=== PATIENT | male | born 1965 | race Caucasian/White ===

== ENCOUNTER 2020-11-12 09:52 | Emergency (ER) | payer SELFPAY ==
[2020-11-12 10:00] VITALS: BP 125/76; PULSE 85; RESP 18; TEMP 36.9; O2SAT 99
[2020-11-12] MEDS: cefTRIAXone 500 MG VIAL IM (11:02)
[2020-11-12] MEDS: LIDOCAINE HCL 1% LOCAL INJ 20 ML VIAL IM (11:03)
--- NOTE | 2020-11-13 08:00 | ED.MALEGU ---
HPI - Male Genitourinary General Chief complaint: Urogenital-Male Stated complaint: Personal exposure Time Seen by Provider: 11/12/20 10:45 Source: patient and RN notes reviewed Mode of arrival: ambulatory Limitations: no limitations History of Present Illness HPI Narrative: Patient presents today complaining of a 2-3 day history of irritation at the tip of his penis with a 1 day history of yellow penile drainage. He recently did have unprotected intercourse. His girlfriend told him that she has been tested and has come positive for a sexually transmitted infection and has been treated. He is unsure which STI she was positive for. Denies hematuria, dysuria, testicular pain or swelling. Denies any lesions. MD Complaint: penile discharge and possible STD exposure Related Data Home Medications Medication Instructions Recorded Confirmed lisinopril-hydrochlorothiazide 1 tablet PO DAILY 11/12/20 11/12/20 Allergies Allergy/AdvReac Type Severity Reaction Status Date / Time No Known Allergies Allergy Verified 11/12/20 10:12 Review of Systems Review of Systems: CONSTITUTIONAL: Denies body aches, fever, chills, or sweats. EYES: Denies visual changes, redness, or discharge. ENT: Denies rhinorrhea, congestion, sore throat, or otalgia. CARDIOVASCULAR: Denies chest pain, palpitations, or edema. RESPIRATORY: Denies cough or dyspnea. GASTROINTESTINAL: Denies abdominal pain, nausea, vomiting, or diarrhea. GENITOURINARY: Denies dysuria or hematuria.+ Penile discharge and irritation SKIN: Denies rash, itching, or wounds. MUSCULOSKELETAL: Denies back pain, joint pain, or myalgia. NEUROLOGIC: Denies headache, numbness, tingling, or weakness. PSYCH: Denies depression or anxiety. [facility] Past Medical History Medical History (Updated 11/13/20 @ 08:04 by Eleni Elizondo, [facility], ) Hypertension Comments At time of signature, I have reviewed and agree with nursing past medical, surgical, social and family history unless otherwise noted. Please see nursing chart for further information. There is no relevant family history pertinent to the presenting complaint Exam Narrative: GENERAL: Well-appearing, well-nourished, and in no acute distress. HEAD: Normocephalic, atraumatic. EYES: EOMI. No redness or drainage. Conjunctivae normal. ENT: Mucous membranes pink and moist. NECK: Normal AROM. CHEST: No respiratory distress. : Deferred. EXTREMITIES: Normal range of motion. No edema. SKIN: Warm, dry, no rash. Capillary refill normal. Normal skin turgor. NEURO: No focal deficits. Alert and oriented x3. Gait steady. PSYCH: Normal affect. No signs of depression or anxiety. Course Vital Signs Vital signs: Vital Signs Temperature 98.4 F 11/12/20 10:00 Pulse Rate 85 11/12/20 10:00 Respiratory Rate 18 11/12/20 10:00 Blood Pressure 125/76 11/12/20 10:00 Pulse Oximetry 99 11/12/20 10:00 Temperature 98.4 F 11/12/20 10:00 Pulse Rate 85 11/12/20 10:00 Respiratory Rate 18 11/12/20 10:00 Blood Pressure 125/76 11/12/20 10:00 Pulse Oximetry 99 11/12/20 10:00 Reviewed. Pt has been instructed to follow up with his PCP regarding his elevated blood pressure today. MDM - Male Genitourinary Differential Diagnosis Differential diagnosis: Likely urethritis, epididymitis and other (Gonorrhea, chlamydia, trichomonas) Lab Data Labs: Lab Results 11/12/20 Range/Units 10:09 C.trachomatis RNA (TMA) Pending N.gonorrhoeae RNA (TMA) Pending T. vaginalis Amp RNA Pending Critical Care Time Critical Care Time Critical Care Time: No Discharge Plan Discharge Clinical Impression: Contact with and (suspected) exposure to infections with a predominantly sexual mode of transmission Patient Disposition: Home, Self-Care Condition: Stable Instructions: Antibiotic Form, Chlamydia (ED), Gonorrhea (ED), Trichomoniasis (ED) Additional Instructions: Your urinalysis sample at [facility] to
== END 2020-11-12 11:25 | disposition home or self-care (01) ==
PROVIDERS: Emergency Provider Nurse Practitioner; PCP Physician Assistant
DX: Z20.2 Contact with and (suspected) exposure to infections with a predominantly sexual mode of transmission (principal); I10 Essential (primary) hypertension
CPT/HCPCS: 87491; 87591; 87661; 96372; 99203; G0463; J0696